=== PATIENT | male | born 1960 | race Caucasian/White ===

== ENCOUNTER 2017-09-02 17:04 | Emergency (ER) | payer BC ==
[~2017-09-02] VITALS: Ht 190.5 cm; Wt 108.9 kg
[~2017-09-02 17:04] MED LIST: AMLO10 PO; AMOX250 PO; AMOX500 PO; BENADRYL25 MG PO; Bactrim Ds Tab1 EACH PO; DOXA2 PO; EPIPEN0.3 MG/0.3 IM; HYDACE10B; Keflex500 MG PO; LUPRON DEPOT3.75 MG; Levaquin500 MG PO; Norco 10-325 T1 EACH PO; OMEP10ER; OXYC5; PRED5; PRED5 PO; Percocet 5-3251 EACH PO; Prednisone20 MG PO; SERT100 PO; SIMV10 PO; ZOLP5; ZYTIGA250 MG PO
[2017-09-02 18:24] LABS: BASOPHILS ABSOLUTE AUTO 0.03 K/mm3 (0.00-0.23); BASOPHILS PERCENT AUTO 0 % (0-2); EOSINOPHILS ABSOLUTE AUTO 0.01 K/mm3 (0.00-0.68); EOSINOPHILS PERCENT AUTO 0 % (0-6); Hematocrit 38.3 % (37.0-53.0); Hemoglobin 12.8 g/dL (13.5-17.5); IMMATURE GRAN ABSOLUTE AUTO 0.03 K/mm3 (0.00-0.10); IMMATURE GRAN PERCENT AUTO 0 % (0-1); LYMPHOCYTES ABSOLUTE AUTO 0.57 K/mm3 (0.84-5.20); LYMPHOCYTES PERCENT AUTO 5 % (21-46); MONOCYTES ABSOLUTE AUTO 0.24 K/mm3 (0.16-1.47); MONOCYTES PERCENT AUTO 2 % (4-13); Mean Corpuscular HGB 30.5 pg (26.0-34.0); Mean Corpuscular HGB Conc 33.4 g/dL (31.5-36.5); Mean Corpuscular Volume 91 fL (80-100); NEUTROPHILS ABSOLUTE AUTO 10.41 K/mm3 (1.96-9.15); NEUTROPHILS PERCENT AUTO 92 % (41-73); Platelet Count 180 K/mm3 (150-400); RDW Standard Deviation 47.3 fL (35.1-46.3); Red Blood Cell Count 4.19 M/mm3 (4.30-5.90); White Blood Cell Count 11.29 K/mm3 (4.00-11.30)
[2017-09-02 18:44] LABS: Alanine Aminotransfer (ALT/SGP 21 U/L (12-78); Albumin, Blood 3.6 g/dL (3.4-5.0); Alk Phos 122 U/L (50-136); Anion Gap 8 mmol/L (6-16); Aspartate Aminotrans (AST/SGOT 9 U/L (12-37); Bilirubin, Total 0.4 mg/dL (0.1-1.0); Blood Urea Nitrogen 19 mg/dL (8-24); Bun/Creatinine Ratio 18.1 (12.0-20.0); CO2, Blood 26 mmol/L (21-32); Calcium, Blood 8.8 mg/dL (8.5-10.1); Chloride, Blood 108 mmol/L (98-108); Creatinine, Blood 1.05 mg/dL (0.60-1.20); Globulin, Blood 3.6 g/dL (2.2-4.0); Glomerular Filtration Rate >60 (60-); Glucose, Blood 128 mg/dL (70-99); Potassium, Blood 3.6 mmol/L (3.5-5.5); Sodium, Blood 142 mmol/L (136-145); Total Protein, Blood 7.2 g/dL (6.4-8.2)
[2017-09-02 19:23] LABS: Source, Urine Clean Catch
[2017-09-02 19:29] LABS: Appearance, Urine Hazy (Clear); Bilirubin, Urine Neg (Neg); Blood, Urine 5+ (Neg); Color, Urine Yellow (P-Yellow); Glucose Qualitative, Urine Neg (Neg); Ketones, Urine Neg (Neg); Leukocyte Esterase, Urine 3+ (Neg); Nitrite, Urine Neg (Neg); Protein, Urine 3+ (Neg); Specific Gravity, Urine 1.015 (1.003-1.022); Urobilinogen, Urine NORM (Normal)
[2017-09-02 19:39] LABS: Bacteria Many /hpf; Red Blood Cells, Urine 50-100 /hpf (0-2); Squamous Epithelial Cells Few /hpf (Few); White Blood Cells, Urine 25-50 /hpf (0-5)
== END 2017-09-02 21:31 | disposition short-term general hospital (02) ==
LOC: ER 17:04
PROVIDERS: Emergency Medicine
DX: T83.193A Other mechanical complication of other urinary stent, initial encounter (principal); N13.30 Unspecified hydronephrosis; F17.210 Nicotine dependence, cigarettes, uncomplicated; Z88.8 Allergy status to other drugs, medicaments and biological substances; Z79.899 Other long term (current) drug therapy; Z79.52 Long term (current) use of systemic steroids
CPT/HCPCS: 36415; 74177; 80053; 81001; 85025; 93005; 93010; 96361; 96374; 96375; 96376; 99285; J0696; J2405; J2550; J3010; J7030; Q9967

== ENCOUNTER 2018-05-06 14:58 | Emergency (ER) | payer BC ==
[~2018-05-06] VITALS: Ht 188 cm; Wt 122.5 kg
[~2018-05-06 14:58] MED LIST changes: +Percocet 7.5-31 EACH PO; +Zofran Odt4 MG SL
[2018-05-06 15:28] LABS: Source, Urine Clean Catch
[2018-05-06 15:38] LABS: BASOPHILS ABSOLUTE AUTO 0.05 K/mm3 (0.00-0.23); BASOPHILS PERCENT AUTO 1 % (0-2); EOSINOPHILS ABSOLUTE AUTO 0.06 K/mm3 (0.00-0.68); EOSINOPHILS PERCENT AUTO 1 % (0-6); Hematocrit 38.6 % (37.0-53.0); Hemoglobin 12.7 g/dL (13.5-17.5); IMMATURE GRAN ABSOLUTE AUTO 0.03 K/mm3 (0.00-0.10); IMMATURE GRAN PERCENT AUTO 0 % (0-1); LYMPHOCYTES ABSOLUTE AUTO 1.22 K/mm3 (0.84-5.20); LYMPHOCYTES PERCENT AUTO 16 % (21-46); MONOCYTES ABSOLUTE AUTO 0.49 K/mm3 (0.16-1.47); MONOCYTES PERCENT AUTO 6 % (4-13); Mean Corpuscular HGB 30.5 pg (26.0-34.0); Mean Corpuscular HGB Conc 32.9 g/dL (31.5-36.5); Mean Corpuscular Volume 93 fL (80-100); Mean Platelet Volume 9.5 fL (9.1-12.4); NEUTROPHILS ABSOLUTE AUTO 5.98 K/mm3 (1.96-9.15); NEUTROPHILS PERCENT AUTO 76 % (41-73); Platelet Count 190 K/mm3 (150-400); RDW Coefficient Variation 14.8 % (11.7-14.2); RDW Standard Deviation 50.6 fL (35.1-46.3); Red Blood Cell Count 4.17 M/mm3 (4.30-5.90); White Blood Cell Count 7.83 K/mm3 (4.00-11.30)
[2018-05-06 15:48] LABS: Appearance, Urine Cloudy (Clear); Bilirubin, Urine Neg (Neg); Blood, Urine 5+ (Neg); Color, Urine Yellow (P-Yellow); Glucose Qualitative, Urine Neg (Neg); Ketones, Urine Neg (Neg); Leukocyte Esterase, Urine 3+ (Neg); Nitrite, Urine Neg (Neg); Protein, Urine 2+ (Neg); Specific Gravity, Urine 1.015 (1.003-1.022); Urobilinogen, Urine NORM (Normal); pH, Urine 6.5 (5.0-8.0)
[2018-05-06 16:01] LABS: Alanine Aminotransfer (ALT/SGP 18 U/L (12-78); Albumin, Blood 3.7 g/dL (3.4-5.0); Albumin/Globulin Ratio 0.9 (0.8-1.8); Alk Phos 111 U/L (50-136); Anion Gap 6 mmol/L (6-16); Aspartate Aminotrans (AST/SGOT 8 U/L (12-37); Bilirubin, Total 0.6 mg/dL (0.1-1.0); Blood Urea Nitrogen 11 mg/dL (8-24); Bun/Creatinine Ratio 11.3 (12.0-20.0); CO2, Blood 26 mmol/L (21-32); Calcium, Blood 9.1 mg/dL (8.5-10.1); Chloride, Blood 105 mmol/L (98-108); Creatinine, Blood 0.97 mg/dL (0.60-1.20); Globulin, Blood 4.3 g/dL (2.2-4.0); Glomerular Filtration Rate >60 (60-); Glucose, Blood 107 mg/dL (70-99); Potassium, Blood 4.1 mmol/L (3.5-5.5); Sodium, Blood 137 mmol/L (136-145)
[2018-05-06 16:20] LABS: White Blood Cells, Urine 25-50 /hpf (0-5)
[2018-05-06 16:22] LABS: Bacteria Few /hpf; Squamous Epithelial Cells Rare /hpf (Few)
== END 2018-05-06 20:52 | disposition home or self-care (01) ==
LOC: ER 14:58
PROVIDERS: Physician Assistant
DX: N39.0 Urinary tract infection, site not specified (principal); N13.30 Unspecified hydronephrosis; F17.210 Nicotine dependence, cigarettes, uncomplicated; Z88.8 Allergy status to other drugs, medicaments and biological substances; Z79.899 Other long term (current) drug therapy; Z85.46 Personal history of malignant neoplasm of prostate
CPT/HCPCS: 36415; 74176; 80053; 81001; 83690; 85025; 87077; 87086; 87186; 96365; 96375; 99284-25; J0696; J1885; J3010

== ENCOUNTER 2018-05-10 09:24 | Day surgery (SDC) | payer BC | END 2018-05-10 17:45 | disposition home or self-care (01) | LOC: ATC 09:24 | DX: N39.0 Urinary tract infection, site not specified (principal); N13.39 Other hydronephrosis; Z88.8 Allergy status to other drugs, medicaments and biological substances; Z79.899 Other long term (current) drug therapy; Z85.46 Personal history of malignant neoplasm of prostate; Z72.0 Tobacco use | CPT/HCPCS: 96365; C1751; J0696 ==

== ENCOUNTER 2018-05-11 08:16 | Day surgery (SDC) | payer BC | END 2018-05-11 16:20 | disposition home or self-care (01) | LOC: ATC 08:16 | DX: N39.0 Urinary tract infection, site not specified (principal) | CPT/HCPCS: 96365; J0696 ==

== ENCOUNTER 2018-05-12 00:18 | Day surgery (SDC) | payer BC | END 2018-05-12 16:40 | disposition home or self-care (01) | LOC: ATC 00:18 | DX: N39.0 Urinary tract infection, site not specified (principal); N13.30 Unspecified hydronephrosis | CPT/HCPCS: 96365; J0696 ==

== ENCOUNTER 2018-05-13 00:58 | Day surgery (SDC) | payer BC | END 2018-05-13 16:24 | disposition home or self-care (01) | LOC: ATC 00:58 | DX: N39.0 Urinary tract infection, site not specified (principal); N13.30 Unspecified hydronephrosis | CPT/HCPCS: 96365; J0696 ==

== ENCOUNTER 2018-05-14 00:58 | Day surgery (SDC) | payer BC | END 2018-05-14 23:06 | disposition home or self-care (01) | LOC: ATC 00:58 | DX: N39.0 Urinary tract infection, site not specified (principal); N13.6 Pyonephrosis | CPT/HCPCS: 96365; J0696 ==

== ENCOUNTER 2018-05-15 00:15 | Day surgery (SDC) | payer BC | END 2018-05-15 22:43 | disposition home or self-care (01) | LOC: ATC 00:15 | DX: N39.0 Urinary tract infection, site not specified (principal); N13.30 Unspecified hydronephrosis | CPT/HCPCS: 96365; J0696 ==

== ENCOUNTER 2018-05-16 00:15 | Day surgery (SDC) | payer BC | END 2018-05-16 16:18 | disposition home or self-care (01) | LOC: ATC 00:15 | DX: N39.0 Urinary tract infection, site not specified (principal); N13.30 Unspecified hydronephrosis | CPT/HCPCS: 96365; J0696 ==

== ENCOUNTER 2018-08-30 09:01 | Day surgery (SDC) | payer BC ==
[~2018-08-30] VITALS: Ht 182.9 cm; Wt 126.4 kg
[~2018-08-30 09:01] MED LIST changes: +CVS FISH OIL 11 EACH PO; +EPIPEN 2-P0.3 MG/0.3 IM; +PROLIA60 MG/1 ML SC
[2018-08-30] MEDS ORDERED: Eligard45 MG SC (09:22)
[2018-08-30] MEDS ORDERED: OMEPRAZOLE20 MG PO (09:22)
[2018-08-30] MEDS ORDERED: Bactrim Ds Tab1 EACH PO (09:23)
== END 2018-08-30 10:30 | disposition home or self-care (01) ==
LOC: MHTC 09:01
DX: N13.5 Crossing vessel and stricture of ureter without hydronephrosis (principal); I10 Essential (primary) hypertension; E78.5 Hyperlipidemia, unspecified; G47.30 Sleep apnea, unspecified; Z88.8 Allergy status to other drugs, medicaments and biological substances; Z79.899 Other long term (current) drug therapy
CPT/HCPCS: 99152; C1729; C1769; J2250; J3010; J7040; Q9967

== ENCOUNTER 2019-02-03 12:42 | Emergency (ER) | payer BC ==
[~2019-02-03] VITALS: Ht 188 cm; Wt 122.5 kg
[~2019-02-03 12:42] MED LIST changes: +Eligard45 MG SC; +OMEPRAZOLE20 MG PO
[2019-02-03 14:04] LABS: BASOPHILS ABSOLUTE AUTO 0.04 K/mm3 (0.00-0.23); BASOPHILS PERCENT AUTO 1 % (0-2); EOSINOPHILS ABSOLUTE AUTO 0.21 K/mm3 (0.00-0.68); EOSINOPHILS PERCENT AUTO 4 % (0-6); Hematocrit 32.9 % (37.0-53.0); Hemoglobin 10.7 g/dL (13.5-17.5); IMMATURE GRAN ABSOLUTE AUTO 0.01 K/mm3 (0.00-0.10); IMMATURE GRAN PERCENT AUTO 0 % (0-1); LYMPHOCYTES PERCENT AUTO 14 % (21-46); MONOCYTES PERCENT AUTO 5 % (4-13); Mean Corpuscular HGB 30.8 pg (26.0-34.0); Mean Corpuscular HGB Conc 32.5 g/dL (31.5-36.5); Mean Corpuscular Volume 95 fL (80-100); Mean Platelet Volume 9.3 fL (9.1-12.4); NEUTROPHILS PERCENT AUTO 76 % (41-73); Platelet Count 357 K/mm3 (150-400); RDW Coefficient Variation 13.5 % (11.7-14.2); RDW Standard Deviation 47.2 fL (35.1-46.3); Red Blood Cell Count 3.47 M/mm3 (4.30-5.90); White Blood Cell Count 5.76 K/mm3 (4.00-11.30)
[2019-02-03 14:21] LABS: Alanine Aminotransfer (ALT/SGP 29 U/L (12-78); Albumin, Blood 2.8 g/dL (3.4-5.0); Albumin/Globulin Ratio 0.7 (0.8-1.8); Alk Phos 109 U/L (50-136); Anion Gap 5 mmol/L (6-16); Aspartate Aminotrans (AST/SGOT 19 U/L (12-37); Bilirubin, Total 0.1 mg/dL (0.1-1.0); Blood Urea Nitrogen 10 mg/dL (8-24); Bun/Creatinine Ratio 8.2 (12.0-20.0); CO2, Blood 26 mmol/L (21-32); Calcium, Blood 8.8 mg/dL (8.5-10.1); Chloride, Blood 109 mmol/L (98-108); Creatinine, Blood 1.22 mg/dL (0.60-1.20); Globulin, Blood 4.2 g/dL (2.2-4.0); Glomerular Filtration Rate >60 (60-); Glucose, Blood 162 mg/dL (70-99); Potassium, Blood 4.1 mmol/L (3.5-5.5); Sodium, Blood 140 mmol/L (136-145)
[2019-02-03] MEDS ORDERED: Cephalexin500 MG PO (16:04)
== END 2019-02-03 16:35 | disposition home or self-care (01) ==
LOC: ER 12:42
PROVIDERS: Physician Assistant
DX: L03.313 Cellulitis of chest wall (principal); F17.210 Nicotine dependence, cigarettes, uncomplicated; Z90.5 Acquired absence of kidney; Z85.46 Personal history of malignant neoplasm of prostate; Z88.8 Allergy status to other drugs, medicaments and biological substances; Z79.899 Other long term (current) drug therapy; Z79.52 Long term (current) use of systemic steroids
CPT/HCPCS: 36415; 76705; 80053; 85025; 93005; 93010; 99284-25

== ENCOUNTER 2024-08-16 01:46 | Emergency (ER) | payer MEDICARE, BC ==
[~2024-08-16] VITALS: Ht 188 cm; Wt 122.5 kg
[~2024-08-16 01:46] MED LIST changes: +Cephalexin500 MG PO
[2024-08-16] MEDS ORDERED: Acetaminophen 500 MG Tab PO ONE (04:00)
[2024-08-16] MEDS ORDERED: Ibuprofen 600 MG Tab PO ONE (04:00)
[2024-08-16] MEDS ORDERED: OxyCODONE HCL 5 MG TAB PO ONE (04:00)
[2024-08-16 05:03] VITALS: BP 120/60
[2024-08-16] MEDS ORDERED: RX Prepack 6 Tabs Oxycodone 5mg UD ONE (05:05)
[2024-08-16] MEDS ORDERED: OXAYDO5 M1 PO (05:11)
== END 2024-08-16 05:32 | disposition home or self-care (01) ==
LOC: ER 01:46
DX: S82.142A Displaced bicondylar fracture of left tibia, initial encounter for closed fracture (principal); F17.210 Nicotine dependence, cigarettes, uncomplicated; W55.32XA Struck by other hoof stock, initial encounter; Z96.7 Presence of other bone and tendon implants; Z87.81 Personal history of (healed) traumatic fracture; Z88.8 Allergy status to other drugs, medicaments and biological substances; Z79.52 Long term (current) use of systemic steroids; Z79.899 Other long term (current) drug therapy
CPT/HCPCS: 29505; 73562-LT; 73700; 99284-25; A9270